=== PATIENT | male | born 1965 | race Caucasian/White ===

== ENCOUNTER 2017-10-02 11:14 | Emergency (ER) | payer SELFPAY ==
[~2017-10-02] VITALS: Ht 175.3 cm; Wt 50.3 kg
[~2017-10-02 11:14] MED LIST: CEPH500C PO
[2017-10-02 11:17] VITALS: TEMP 37; Ht 175.3 cm; Wt 50.3 kg
--- NOTE | 2017-10-02 11:36 | EMERGENCY ROOM VISIT NOTE ---
History Report prepared by Kwabena: Brinda Minor Under the Supervision of: Dr. Luisito Haynes M.D. First contact with patient: 11:22 Chief Complaint: COUGH Stated Complaint: COUGH, ACHES, RUNNY NOSE History of Present Illness The patient is a 51 year old male who presents to the Emergency Room with complaints of a constant cough beginning 1 week ago. He is accompanied by his who reports that he has muscle aches. The patient also has a runny nose and sinus congestion. He is a current smoker. No fever, nausea, vomiting, melena, hematochezia, diarrhea, or hemoptysis. No chest pain or shortness of breath. Source of History: patient, spouse/significant other () Onset: 1 week ago Position: chest Quality: other (cough) Timing: constant Associated Symptoms: + weakness (muscle aches) Note: Positive runny nose Review of Systems See HPI for pertinent positives and negatives. A total of ten systems were reviewed and were otherwise negative. Past Medical & Surgical Medical Problems: (1) No significant past medical history Family History FH: diabetes mellitus Social History Smoking Status: Current Every Day Smoker Smokeless Tobacco Use: Unknown Marital Status: in relationship Housing Status: lives with significant other Current/Historical Medications Scheduled Albuterol (Ventolin Hfa), 2 PUFFS INH QID Cephalexin Monohydrate (Keflex), 500 MG PO QID Doxycycline Monohydrate (Monodox), 100 MG PO BID Prednisone (Prednisone), 50 MG PO DAILY Miscellaneous Medications None (Patient States No Home Meds) Allergies Coded Allergies: Amoxicillin (Unverified Adverse Reaction, Unknown, CRAMPS, 08/01/10) Clavulanic Acid (Unverified Adverse Reaction, Unknown, CRAMPS, 08/01/10) Physical Exam Vital Signs Date Time Temp Pulse Resp B/P (MAP) Pulse Ox O2 Delivery O2 Flow Rate FiO2 10/02/17 11:37 102 20 137/86 95 Room Air 10/02/17 11:36 95 Room Air 10/02/17 11:17 37.0 98 20 146/76 95 Room Air Physical Exam Physical Exam GENERAL: He is oriented to person, place, and time. He appears well-developed and well-nourished. he does not appear distressed. ____ HENT: Exam performed. Head: Normocephalic and atraumatic. Right Ear: External ear normal. No mastoid tenderness. Left Ear: External ear normal. No mastoid tenderness. Mouth/Throat: The oropharynx is clear and moist. No trismus in the jaw. No dental abscesses or uvula swelling. No oropharyngeal exudate or tonsillar abscesses. ____ EYES: Conjunctivae and EOM are normal. Pupils are equal, round, and reactive to light. Right eye exhibits no discharge. Left eye exhibits no discharge. No scleral icterus. ____ NECK: Normal range of motion. Neck supple. No JVD present. No spinous process tenderness present. No carotid bruit present. No rigidity. No tracheal deviation and normal range of motion present. No Brudzinski's sign and no Kernig 's sign noted. ____ CV: Normal rate, regular rhythm, normal heart sounds and intact distal pulses. There is no peripheral edema. Palpable radial pulses bue. ____ PULM/CHEST: Effort normal and breath sounds normal. No respiratory distress. No stridor. He has no wheezes. He has no rales. Chest Wall: He exhibits no tenderness. ____ ABD: The abdomen is soft. Bowel sounds are normal. He has no distension. No mass is present. There is no tenderness. There is no rebound, no guarding, no Ward's sign and no tenderness at McBurney's point. Rovsig negative MUSC/SKEL: Normal range of motion. There is no peripheral edema, tenderness or deformity. LYMPH: No cervical adenopathy. ____ NEURO: He is alert and oriented to person, place, and time. He has normal strength. No cranial nerve deficit or sensory deficit. Coordination and gait normal. GCS eye subscore is 4. GCS verbal subscore is 5. GCS motor subscore is 6. Cerebellar tests wnl. ____ SKIN: Skin is warm and dry. He is not diaphoretic. ____ PSYCH: He has a normal mood and affect. His behavior is normal. Judgment and thought content normal. ____ Medical Decision & Procedures Medications Administered Medications (Trade) Dose Ordered Sig/Al[place] Route Start Time Stop Time Status Last Admin Dose Admin Doxycycline Hyclate (Vibramycin Cap) 100 mg ONE ONCE PO 10/02/17 11:45 10/02/17 11:46 DC 10/02/17 11:49 100 MG Prednisone (PredniSONE TAB) 60 mg NOW STAT PO 10/02/17 11:34 10/02/17 11:36 DC 10/02/17 11:49 60 MG ED Course 1129: The patient was evaluated in room C7. A complete history and physical exam was performed. Vital signs stable. Lungs are clear to auscultation, given no fevers, no need for imaging or labs at this time. We will treat for bronchitis given the long smoking history. Doxycycline and prednisone given. DISCHARGE - Plan of care discussed with patient and questions answered. The patient was given both verbal and printed discharge instructions. The patient verbalized understanding and ability to comply. The patient is to seek outpatient follow up as noted in the discharge instructions. The patient verbalized understanding and ability to comply. The patient is discharged in stable condition. The patient was instructed to return for worsening symptoms. Medical Decision The patient was evaluated in room C7. A complete history and physical exam was performed. Vital signs stable. Lungs are clear to auscultation, given no fevers, no need for imaging or labs at this time. We will treat for bronchitis given the long smoking history. Doxycycline and prednisone given. DISCHARGE - Plan of care discussed with patient and questions answered. The patient was given both verbal and printed discharge instructions. The patient verbalized understanding and ability to comply. The patient is to seek outpatient follow up as noted in the discharge instructions. The patient verbalized understanding and ability to comply. The patient is discharged in stable condition. The patient was instructed to return for worsening symptoms. Medication Reconcilliation Current Medication List: was personally reviewed by me Blood Pressure Screening Patient's blood pressure: Elevated blood pressure Blood pressure disposition: Elevated BP felt to be situational Impression Primary Impression: Acute bronchitis Scribe Attestation The scribe's documentation has been prepared under my direction and personally reviewed by me in its entirety. I confirm that the note above accurately reflects all work, treatment, procedures, and medical decision making performed by me. The chart was completed utilizing Nu3 voice recognition software. Grammatical errors, random word insertions, pronoun errors, and incomplete sentences are an occasional consequence of this system due to software limitations, ambient noise, and hardware issues. Any formal questions or concerns about the content, text, or information contained within the body of this dictation should be directly addressed to the physician for clarification. Departure Information Dispostion Home / Self-Care Prescriptions Prednisone (Prednisone) 50 Mg Tab 50 MG PO DAILY for 4 Days, TAB Prov: Luisito Haynes M.D. 10/02/17 Albuterol (Ventolin Hfa) 60 Puffs/5400 Mcg Aers 2 PUFFS INH QID for 5 Days, #1 INHALER 2 Refills Prov: Luisito Haynes M.D. 10/02/17 Doxycycline Monohydrate (Monodox) 100 Mg Cap 100 MG PO BID for 7 Days, #14 CAP Prov: Luisito Haynes M.D. 10/02/17 Referrals Alla Leal M.D. (PCP) Forms HOME CARE DOCUMENTATION FORM, IMPORTANT VISIT INFORMATION Patient Instructions My [facility] Additional Instructions Return to the emergency department if you develop fever greater than 100.4, cough up blood, develop chest pressure, her symptoms do not get better or worsen. Problem Qualifiers Primary Impression: Acute bronchitis Bronchitis organism: unspecified organism Qualified Codes: J20.9 - Acute bronchitis, unspecified
[2017-10-02 11:37] VITALS: BP 137/86; PULSE 102; O2SAT 95
[2017-10-02] MEDS ORDERED: PRVHFAIN INH (11:37)
[2017-10-02] MEDS ORDERED: DOXY100C76 PO (11:37)
[2017-10-02] MEDS ORDERED: PRED50TA PO (11:38)
[2017-10-02] MEDS ORDERED: DOXYCYCLINE HYCLATE 100 MG CAP PO ONE (11:45)
== END 2017-10-02 12:13 | disposition home or self-care (01) ==
LOC: C.EDB 11:15 → C.EDC 12:13
DX: J20.9 Acute bronchitis, unspecified (principal); F17.210 Nicotine dependence, cigarettes, uncomplicated; Z88.1 Allergy status to other antibiotic agents; Z88.8 Allergy status to other drugs, medicaments and biological substances